=== PATIENT | female | born 1980 | race Caucasian/White ===

== ENCOUNTER 2016-11-01 22:21 | Emergency (ER) | payer SELFPAY | END 2016-11-02 01:35 | disposition home or self-care (01) | LOC: FER 22:21 | DX: S93.601A Unspecified sprain of right foot, initial encounter (principal); M25.551 Pain in right hip; F17.210 Nicotine dependence, cigarettes, uncomplicated; V49.40XA Driver injured in collision with unspecified motor vehicles in traffic accident, initial encounter; Y92.410 Unspecified street and highway as the place of occurrence of the external cause | CPT/HCPCS: 71010; 72170; 73502; 73552; 73590; 73610; 73630; J2270; J2405 ==